=== PATIENT | female | born 1985 | race African-American/Black ===

== ENCOUNTER 2017-01-11 16:34 | Emergency (ER) | payer OTHER ==
[~2017-01-11] VITALS: Ht 160 cm; Wt 56.7 kg
[2017-01-11 16:50] VITALS: BP 133/70
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
[2017-01-11] MEDS ORDERED: CYCL5TAB PO (18:10)
[2017-01-11] MEDS ORDERED: IBUP-1060 PO (18:10)
[2017-01-11] MEDS ORDERED: IBUPROFEN 800 MG TABLET. PO ONE ×2 (18:15→18:17)
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
== END 2017-01-11 18:25 | disposition home or self-care (01) ==
LOC: ER 16:34
DX: S39.012A Strain of muscle, fascia and tendon of lower back, initial encounter (principal); V43.62XA Car passenger injured in collision with other type car in traffic accident, initial encounter; Y93.89 Activity, other specified; Y99.8 Other external cause status; Y92.488 Other paved roadways as the place of occurrence of the external cause
CPT/HCPCS: 72100; 72220; 81025; 99284-25

== ENCOUNTER 2017-02-06 18:41 | Emergency (ER) | payer SELFPAY ==
[~2017-02-06] VITALS: Ht 162.6 cm; Wt 56.7 kg
[~2017-02-06 18:41] MED LIST: CYCL5TAB PO; IBUP-1060 PO
[2017-02-06 19:30] VITALS: BP 148/64
[2017-02-06] MEDS ORDERED: AMOX1TAB61 PO (19:45)
--- NOTE | 2017-02-06 19:45 | PHYS DOC ---
Past Medical History Past Medical History: No Pertinent History Past Surgical History: No Surgical History Alcohol Use: Occasionally Drug Use: None Adult General Chief Complaint Chief Complaint: SORE THROAT HPI HPI Patient is a 31 year old female presents to the emergency department stating that she's been having a cough congestion with a fever for the last 5 days. She states that she has not taken anything [id number]. She does state the cough has been keeping her up at night. Patient denies any nausea vomiting. Patient does state the cough is been productive and yellow in color. Patient denies any sick contact. Review of Systems Review of Systems Constitutional: Fever Eyes: Denies change in visual acuity, redness, or eye pain [] HENT: Nasal congestion, sore throat Respiratory: Cough denies shortness of air Cardiovascular: No additional information not addressed in HPI [] GI: Denies abdominal pain, nausea, vomiting, bloody stools or diarrhea [] : Denies dysuria or hematuria [] Musculoskeletal: Denies back pain or joint pain [] Integument: Denies rash or skin lesions [] Neurologic: Denies headache, focal weakness or sensory changes [] Endocrine: Denies polyuria or polydipsia [] All other systems were reviewed and found to be within normal limits, except as documented in this note. Allergies Allergies Allergies Coded Allergies Type Severity Reaction Last Updated Verified No Known Drug Allergies 01/11/17 No Physical Exam Physical Exam Constitutional: Well developed, well nourished, no acute distress, non-toxic appearance. [] HENT: Normocephalic, atraumatic, bilateral external ears normal, oropharynx moist, no oral exudates, nose normal. Bilateral tympanic membranes appear to be normal. Throat with erythematous with postnasal drip no exudate noted. Eyes: PERRLA, EOMI, conjunctiva normal, no discharge. [] Neck: Normal range of motion, no tenderness, supple, no stridor. [] Cardiovascular:Heart rate regular rhythm, no murmur [] Lungs & Thorax: Bilateral breath sounds clear to auscultation [] Skin: Warm, dry, no erythema, no rash. [] Extremities: No tenderness, no cyanosis, no clubbing, ROM intact, no edema. [] Neurologic: Alert and oriented X 3, normal motor function, normal sensory function, no focal deficits noted. [] Psychologic: Affect normal, judgement normal, mood normal. [] Current Patient Data Vital Signs Vital Signs Date Time Temp Pulse Resp B/P (MAP) Pulse Ox O2 Delivery O2 Flow Rate FiO2 02/06/17 19:30 98.7 92 16 99 Room Air 98.7 EKG EKG [] Radiology/Procedures Radiology/Procedures [] Course & Med Decision Making Course & Med Decision Making Pertinent Labs and Imaging studies reviewed. (See chart for details) Patient will be discharged home in stable condition. She'll be placed on Augmentin with recommendations for and Mucinex DM and Sudafed instructed by manufacture [id number]. Tylenol or ibuprofen for fever chills or generalized body aches and discomfort. Signs and symptoms to return back to the emergency department has been provided. All questions and concerns been answered at the patients bedside. [] Dragon Disclaimer Dragon Disclaimer This electronic medical record was generated, in whole or in part, using a voice recognition dictation system. Departure Departure Impression: Primary Impression: Sinusitis Disposition: HOME, SELF-CARE Condition: STABLE Referrals: NO PCP (PCP) Patient Instructions: Sinusitis, [id number] Additional Instructions: Activity as tolerated. Medications as prescribed. Mucinex DM as directed by manufacture [id number]. Sudafed instructed by manufacture [id number]. Tylenol or ibuprofen for fever chills or generalized body aches and discomfort. Drink plenty of fluids such as water, propel or Gatorade. Follow-up with the primary care physician in the next week. Return back to the emergency department as needed for signs and symptoms that become worse. Scripts Amoxicillin/Potassium Clav (AUGMENTIN 875-125 TABLET) 1 Each Tablet 1 TAB PO BID, #20 TAB Prov: DAVON BAUER [employer]CHITECT 02/06/17 Problem Qualifiers Primary Impression: Sinusitis Sinusitis location: unspecified location Chronicity: unspecified Qualified Codes: J32.9 - Chronic sinusitis, unspecified DAVON BAUER [employer] ARCHITECT Feb 06, 2017 19:45
== END 2017-02-06 19:44 | disposition home or self-care (01) ==
LOC: ER 18:41
DX: J32.9 Chronic sinusitis, unspecified (principal)
CPT/HCPCS: 99283